=== PATIENT | male | born 1970 | race African-American/Black ===

== ENCOUNTER 2016-10-11 01:34 | Emergency (ER) | payer MEDICAID ==
[2016-10-11] MEDS ORDERED: ONDANSETRON 4 MG/2 ML VIAL IVP ONE (01:37)
[2016-10-11] MEDS ORDERED: NS 1,000 ML IV ONE ×2 (01:37)
[2016-10-11] MEDS ORDERED: LOPERAMIDE HCL 2 MG CAP PO ONE (01:38)
--- NOTE | 2016-10-11 01:40 | EDPHY ---
H & P HPI/ROS: CHIEF COMPLAINT: Nausea, vomiting diarrhea HISTORY OF PRESENT ILLNESS: Patient is a homeless man who comes to the ER by EMS complaining of nausea, vomiting and diarrhea for the last 2 days. No fever. No abdominal pain. No chest pain. No shortness of breath. He denies any significant past medical history. No blood in his vomit or stool. REVIEW OF SYSTEMS: Constitutional: denies: chills, fever, recent illness, recent injury EENTM: denies: blurred vision, double vision, nose congestion Respiratory: denies: cough, shortness of breath Cardiac: denies: chest pain, irregular heart rate, lightheadedness, palpitations Gastrointestinal/Abdominal: See HPI Genitourinary: denies: dysuria, frequency, hematuria, pain Musculoskeletal: denies: joint pain, muscle pain Skin: denies: lesions, rash, jaundice, bruising Neurological: denies: headache, numbness, paresthesia, tingling, dizziness, weakness Hematologic/Lymphatic: denies: blood clots, easy bleeding, easy bruising Immunologic/allergic: denies: HIV/AIDS, transplant EXAM: GENERAL: Well-appearing, well-nourished and in no acute distress. HEAD: Atraumatic, normocephalic. EYES: Pupils equal round and reactive to light, extraocular movements intact, sclera anicteric, conjunctiva are normal. ENT: TMs normal, nares patent, oropharynx clear without exudates. Moist mucous membranes. NECK: Normal range of motion, supple without lymphadenopathy or JVD. LUNGS: Breath sounds clear to auscultation bilaterally and equal. No wheezes rales or rhonchi. HEART: Regular rate and rhythm without murmurs, rubs or gallops. ABDOMEN: Soft, nontender, normoactive bowel sounds. No guarding, no rebound. No masses appreciated. BACK: No CVA tenderness, no spinal tenderness, step-offs or deformities EXTREMITIES: Normal range of motion, no pitting or edema. No clubbing or cyanosis. NEUROLOGICAL: Cranial nerves II through XII grossly intact. Normal speech, normal gait. 5/5 strength, normal movement in all extremities, normal sensation PSYCH: Normal mood, normal affect. SKIN: Warm, dry, normal turgor, no visible rashes or lesions. Source: Patient, EMS Exam Limitations: No limitations - Medical/Surgical History Hx Asthma: No Hx Chronic Respiratory Disease: No Hx Diabetes: No Hx Cardiac Disease: No Hx Renal Disease: No Hx Cirrhosis: No Hx Alcoholism: No - Family History Significant Family History: No pertinent family hx - Social History Smoking Status: Current some day smoker Alcohol Use: Sober Drug Use: None Constitutional: Initial Vital Signs Temperature (C) 36.6 C 10/11/16 01:35 Heart Rate 86 10/11/16 01:35 Respiratory Rate 17 10/11/16 01:35 Blood Pressure 91/72 L 10/11/16 01:35 O2 Sat (%) 95 10/11/16 01:35 O2 Delivery Mode Room Air Allergies/Adverse Reactions: No Known Allergies Allergy (Unverified 10/11/16 01:48) Home Medications: Medication Instructions Recorded Loperamide HCl [Imodium A-D] 2 mg PO Q4-6PRN PRN #30 tablet 10/11/16 Ondansetron Odt [Zofran Odt 4 mg 4 mg PO Q4 PRN #10 tab 10/11/16 (RX)] Medical Decision Making ED Course/Re-evaluation: 3:20 a.m. we discussed the patient's test results which are reassuring. He has not had any more episodes of diarrhea or vomiting since arriving. He is eager to go. We discussed indications for returning. Differential Diagnosis: Partial list of the Differential diagnosis considered include but were not limited to; vomiting, diarrhea, gastritis and although unlikely based on the history and physical exam, I also considered C difficile, appendicitis, diverticulitis, peptic ulcer disease. I discussed these differential diagnoses and the plan with the patient as well as the usual and expected course. The patient understands that the diagnosis is provisional and that in medicine we are not always correct and that further workup is often warranted. Usual and customary warnings were given. All of the patient's questions were answered. The patient was instructed to return to the emergency department should the symptoms at all worsen or return, otherwise to followup with the physician as we discussed. - Data Points Laboratory Results: Laboratory Results 10/11/16 01:30 10/11/16 01:30 10/11/16 10/11/16 01:50 01:30 WBC 6.27 10^3/uL (3.80-9.50) RBC 5.61 10^6/uL (4.40-6.38) Hgb 15.3 g/dL (13.7-17.5) Hct 44.2 % (40.0-51.0) MCV 78.8 L fL (81.5-99.8) MCH 27.3 L pg (27.9-34.1) MCHC 34.6 g/dL (32.4-36.7) RDW 12.5 % (11.5-15.2) Plt Count 134 L 10^3/uL (150-400) MPV 12.1 H fL (8.7-11.7) Neut % (Auto) 79.2 H % (39.3-74.2) Lymph % (Auto) 12.8 L % (15.0-45.0) [place] % (Auto) 7.3 % (4.5-13.0) Eos % (Auto) 0.3 L % (0.6-7.6) Baso % (Auto) 0.2 L % (0.3-1.7) Nucleat RBC Rel Count 0.0 % (0.0-0.2) Absolute Neuts (auto) 4.97 10^3/uL (1.70-6.50) Absolute Lymphs (auto) 0.80 L 10^3/uL (1.00-3.00) Absolute Monos (auto) 0.46 10^3/uL (0.30-0.80) Absolute Eos (auto) 0.02 L 10^3/uL (0.03-0.40) Absolute Basos (auto) 0.01 L 10^3/uL (0.02-0.10) Absolute Nucleated RBC 0.00 10^3/uL (0-0.01) Immature Gran % 0.2 % (0.0-1.1) Immature Gran # 0.01 10^3/uL (0.00-0.10) Sodium 141 mEq/L (134-144) Potassium 3.7 mEq/L (3.5-5.2) Chloride 106 mEq/L (97-110) Carbon Dioxide 19 L mEq/l (22-31) Anion Gap 16 mEq/L (8-16) BUN 17 mg/dL (7-23) Creatinine 1.2 mg/dL (0.7-1.3) Estimated GFR > 60 Glucose 114 H mg/dL (70-100) Calcium 8.9 mg/dL (8.5-10.4) Total Bilirubin 0.7 mg/dL (0.1-1.4) Conjugated Bilirubin 0.6 H mg/dL (0.0-0.5) Unconjugated Bilirubin 0.1 mg/dL (0.0-1.1) AST 25 IU/L (17-59) ALT 44 IU/L (21-72) Alkaline Phosphatase 86 IU/L (38-126) Total Protein 7.4 g/dL (6.3-8.2) Albumin 4.2 g/dL (3.5-5.0) Lipase 98.0 IU/L (23-300) Stool Occult Bld Scrn NEGATIVE (NEGATIVE) C. difficile Tox (PCR) Pending Medications Given: Discontinued Medications Sodium Chloride (Ns) 1,000 mls @ 0 mls/hr IV ONCE ONE PRN Reason: Wide Open Stop: 10/11/16 01:38 Last Admin: 10/11/16 01:41 Dose: 1,000 mls Sodium Chloride (Ns) 1,000 mls @ 0 mls/hr IV ONCE ONE PRN Reason: Wide Open Stop: 10/11/16 01:38 Last Admin: 10/11/16 01:42 Dose: 1,000 mls Loperamide HCl (Imodium) 4 mg PO EDNOW ONE Stop: 10/11/16 01:39 Last Admin: 10/11/16 02:16 Dose: 4 mg Ondansetron HCl (Zofran) 4 mg IVP EDNOW ONE Stop: 10/11/16 01:38 Last Admin: 10/11/16 02:16 Dose: 4 mg Departure - Departure Disposition: Home, Routine, Self-Care Clinical Impression: Gastroenteritis Condition: Fair Instructions: Gastroenteritis (ED) Referrals: NONE *PRIMARY CARE P,. [Primary Care Provider] - As per Instructions Prescriptions: Loperamide HCl [Imodium A-D] 2 mg PO Q4-6PRN PRN #30 tablet PRN Reason: Diarrhea/Loose Stools Ondansetron Odt [Zofran Odt 4 mg (RX)] 4 mg PO Q4 PRN #10 tab PRN Reason: Nausea & Vomiting
[2016-10-11 01:52] LABS: % IMMATURE GRANULYOCYTES 0.2 % (0.0-1.1); ABSOLUTE IMMATURE GRANULOCYTES 0.01 10^3/uL (0.00-0.10); ADD DIFF? NO; ADD MORPH? NO; ADD SCAN? NO; ATYPICAL LYMPHOCYTE FLAG 40 (0-99); FRAGMENT RBC FLAG 0 (0-99); HEMATOCRIT 44.2 % (40.0-51.0); HEMOGLOBIN 15.3 g/dL (13.7-17.5); LEFT SHIFT FLG 10 (0-99); LIPEMIA HEMOLYSIS FLAG 90 (0-99); MEAN CELL HEMOGLOBIN 27.3 pg (27.9-34.1); MEAN CELL HEMOGLOBIN CONCENTR. 34.6 g/dL (32.4-36.7); MEAN CELL VOLUME 78.8 fL (81.5-99.8); MEAN PLATELET VOLUME 12.1 fL (8.7-11.7); PLATELET CLUMPS FLAG 10 (0-99); PLATELET COUNT 134 10^3/uL (150-400); RED BLOOD CELL COUNT 5.61 10^6/uL (4.40-6.38); RED CELL DISTRIBUTION WIDTH 12.5 % (11.5-15.2)
[2016-10-11 01:56] LABS: ALANINE AMINOTRANSFERASE 44 IU/L (21-72); ALBUMIN 4.2 g/dL (3.5-5.0); ALKALINE PHOSPHATASE 86 IU/L (38-126); ANION GAP 16 mEq/L (8-16); ASPARTATE AMINOTRANSFERASE 25 IU/L (17-59); BILIRUBIN,TOTAL 0.7 mg/dL (0.1-1.4); BILIRUBIN-CONJUGATED 0.6 mg/dL (0.0-0.5); BILIRUBIN-UNCONJUGATED 0.1 mg/dL (0.0-1.1); CALCIUM 8.9 mg/dL (8.5-10.4); CARBON DIOXIDE 19 mEq/l (22-31); CHLORIDE 106 mEq/L (97-110); CREATININE 1.2 mg/dL (0.7-1.3); GLOMERULAR FILTRATION RATE > 60; GLUCOSE 114 mg/dL (70-100); POTASSIUM 3.7 mEq/L (3.5-5.2); SODIUM 141 mEq/L (134-144); TOTAL PROTEIN 7.4 g/dL (6.3-8.2)
[2016-10-11 02:04] LABS: OCCULT BLOOD FECES NEGATIVE (NEGATIVE)
[2016-10-11 03:37] VITALS: BP 109/62; PULSE 73; RESP 16; TEMP 98.6; O2SAT 93
[2016-10-11 09:50] LABS: CLOSTRIDIUM DIFFICILE DNA NEGATIVE (NEGATIVE)
== END 2016-10-11 03:37 | disposition home or self-care (01) ==
DX: K52.9 Noninfective gastroenteritis and colitis, unspecified (principal); F17.200 Nicotine dependence, unspecified, uncomplicated
CPT/HCPCS: 96374; J2405